=== PATIENT | male | born 1965 | race Caucasian/White ===

== ENCOUNTER → 2016-11-24 | Outpatient (CLI) | payer BC ==
--- NOTE | 2016-11-24 10:02 | Diagnostic Imaging Report ---
PROCEDURE: CT abdomen and pelvis without contrast. TECHNIQUE: Multiple contiguous axial images were obtained through the abdomen and pelvis without the use of intravenous contrast. INDICATION: Bladder pain. History of nephrolithiasis. No priors. A punctate calculus nonobstructing within a right renal upper pole calyx measures 3 mm. A calyceal stone in the mid left kidney measures 4.8 mm. A punctate stone, 1 to 2 mm, within a left lower pole calyx present. A distal third left ureteral stone is about 6.5 cm above the level of the UVJ seen best on coronal image 40 series 4 and axial image 85 series 2. This calculus measures 3.7 mm AP x 2.2 mm transverse and has Hounsfield units of roughly 270 although density measurements limited by its small size. The ureter upstream may be minimally ectatic, but there is no hydronephrosis and no perinephric or periureteric edema or fluid collection. There are no stones within the lumen of the fluid-containing nonfocal urinary bladder. The right ureter was without stone or dilatation. The lung bases clear. The liver, spleen, adrenals, pancreas negative. The gallbladder surgically absent with no pathological bile duct dilatation. The aorta is nonaneurysmal. The appendix normal. There is no diverticulitis. There is no ascites, abscess, hematoma, or fluid collection. IMPRESSION: Bilateral intrarenal stones with distal third left ureteral calculus, 3.7 x 2.2 mm, without upstream hydronephrosis. Dictated by: Dictated on workstation # [id number]
== END ==
LOC: RAD 09:08
PROVIDERS: ATTEND Urology
DX: N20.2 Calculus of kidney with calculus of ureter (principal)
CPT/HCPCS: 74176

== ENCOUNTER 2016-11-28 06:06 | Outpatient (CLI) | payer BC ==
[~2016-11-28] VITALS: Ht 193 cm; Wt 129.3 kg
[2016-11-29] MEDS ORDERED: PHEN-640 PO (10:51)
[2016-11-29] MEDS ORDERED: CIPR-225 PO (10:51)
[2016-11-29] MEDS ORDERED: TAMS0.4C98 PO (10:51)
== END 2016-11-28 13:02 ==
LOC: PREOP 06:06
PROVIDERS: ATTEND Urology
DX: Z01.818 Encounter for other preprocedural examination (principal); N20.2 Calculus of kidney with calculus of ureter

== ENCOUNTER 2019-01-23 17:34 | Emergency (ER) | payer BC ==
[~2019-01-23] VITALS: Ht 193 cm; Wt 133.9 kg
[~2019-01-23 17:34] MED LIST: CIPR-225 PO; PHEN-640 PO; TMSL.4C PO
--- NOTE | 2019-01-23 17:59 | ED Abdominal Pain ---
General Stated Complaint: LOWER ABD PAIN Source of Information: Patient Exam Limitations: No Limitations (ELI DUNN DO) History of Present Illness Date Seen by Provider: Jan 23, 2019 Time Seen by Provider: 17:56 Initial Comments Patient is here with suprapubic bladder pain and said kidney stones in the past probably 9 times all of them associated with bladder pain there uric acid stones inside gallop as a diagnosis has been on allopurinol one time not now no fever no chills is been dealing with this for several days at this time does not think he can pass on its own. Timing/Duration: 6-7 Days Severity/Quality: Moderate Location: Suprapubic Radiation: No Radiation Modifying Factors: Improves With Movement Associated Symptoms: No Fever/Chills; Nausea/Vomiting; No Weakness (KELY WELLS JR, MD) Allergies and Home Medications Allergies Coded Allergies: No Known Drug Allergies (Unverified , 11/28/16) Home Medications Ciprofloxacin HCl 500 Mg Tablet, 500 MG PO BID Prescribed by: ALF ORTIZ on 11/29/16 1051 Phenazopyridine HCl 200 Mg Tablet, 1 TAB PO TID PRN for PAIN-MILD TO MODERATE Prescribed by: ALF ORTIZ on 11/29/16 1051 Tamsulosin HCl 0.4 Mg Cap, 0.4 MG PO DAILY Prescribed by: ALF ORTIZ on 11/29/16 1051 Patient Home Medication List Home Medication List Reviewed: Yes (KELY WELLS JR, MD) Home Medication List Reviewed: Yes (ELI DUNN DO) Review of Systems Review of Systems Constitutional: No chills, No dizziness, No fever EENTM: No Nose Congestion, No Throat Pain Respiratory: Denies Cough, Denies Shortness of Air, Denies Wheezing Cardiovascular: Denies Chest Pain, Denies Palpitations Gastrointestinal: Abdominal Pain; Denies Nausea, Denies Vomiting Genitourinary: Denies Burning, Denies Frequency, Denies Pain Musculoskeletal: No joint pain, No joint swelling Skin: No lesions, No rash Psychiatric/Neurological: Denies Anxiety, Denies Headache, Denies Paresthesia (KELY WELLS JR, MD) Past Wlibzis-Lbywns-Inbetx Hx Past Med/Social Hx: Reviewed Nursing Past Med/Soc Hx (KELY WELLS JR, MD) Past Med/Social Hx: Reviewed Nursing Past Med/Soc Hx (ELI DUNN DO) Patient Social History Recent Foreign Travel: No Contact w/Someone Who Travel: No Recent Hopitalizations: No (KELY WELLS JR, MD) Immunizations Up To Date Date of Influenza Vaccine: Nov 21, 2016 (KELY WELLS JR, MD) Seasonal Allergies Seasonal Allergies: No (KELY WELLS JR, MD) Past Medical History Gallbladder Reproductive Disorders: No Sexually Transmitted Disease: No HIV/AIDS: No Kidney Stones Gastrointestinal Bleed Loss of Vision: Bilateral Hearing Impairment: Denies Adverse Reaction/Blood Tranf: No (N/A) (KELY WELLS JR, MD) Physical Exam Vital Signs Vital Signs - First Documented 01/23/19 17:45 Temp 36.0 Pulse 98 Resp 18 B/P (MAP) 183/96 (125) Pulse Ox 97 (ELI DUNN DO) Vital Signs Capillary Refill : (KELY WELLS JR, MD) Height/Weight/BMI Height: 6'4.00" Weight: 285lbs. 0.0oz. 129.311740ym; 34.7 BMI Method: General Appearance: WD/WN, mild distress HEENT: normal ENT inspection, TMs normal, pharynx normal Neck: full range of motion, supple Respiratory: chest non-tender, lungs clear, no respiratory distress Cardiovascular: regular rate, rhythm, no murmur Gastrointestinal: normal bowel sounds, no organomegaly, tenderness (suprapubic moderate) Extremities: non-tender, no pedal edema Back: no CVA tenderness Neurologic/Psychiatric: normal mood/affect, oriented x 3 Skin: normal color, warm/dry (KELY WELLS JR, MD) General Appearance: no apparent distress Respiratory: chest non-tender, lungs clear, no respiratory distress Cardiovascular: normal peripheral pulses, regular rate, rhythm (ELI DUNN DO) Progress/Results/Core Measures Results/Orders Lab Results Laboratory Tests Test 01/23/19 17:40 01/23/19 18:20 Range/Units Urine Color YELLOW Urine Clarity CLEAR Urine pH 7.0 5-9 Urine Specific [place] <1.005 1.016-1.022 Urine Protein NEGATIVE NEGATIVE Urine Glucose (UA) NEGATIVE NEGATIVE Urine Ketones NEGATIVE NEGATIVE Urine Nitrite NEGATIVE NEGATIVE Urine Bilirubin NEGATIVE NEGATIVE Urine Urobilinogen 0.2 < = 1.0 MG/DL Urine Leukocyte Esterase NEGATIVE NEGATIVE Urine RBC (Auto) 3+ H NEGATIVE Urine RBC 50-100 H /HPF Urine WBC NONE /HPF Urine Crystals NONE /LPF Urine Bacteria NONE /HPF Urine Casts NONE /LPF Urine Mucus NEGATIVE /LPF Urine Culture Indicated NO White Blood Count 6.4 4.3-11.0 10^3/uL Red Blood Count 4.99 4.35-5.85 10^6/uL Hemoglobin 14.7 13.3-17.7 G/DL Hematocrit 43 40-54 % Mean Corpuscular Volume 86 80-99 FL Mean Corpuscular Hemoglobin 29 25-34 PG Mean Corpuscular Hemoglobin Concent 34 32-36 G/DL Red Cell Distribution Width 13.9 10.0-14.5 % Platelet Count 216 130-400 10^3/uL Mean Platelet Volume 10.3 7.4-10.4 FL Neutrophils (%) (Auto) 60 42-75 % Lymphocytes (%) (Auto) 27 12-44 % Monocytes (%) (Auto) 11 0-12 % Eosinophils (%) (Auto) 2 0-10 % Basophils (%) (Auto) 1 0-10 % Neutrophils # (Auto) 3.8 1.8-7.8 X 10^3 Lymphocytes # (Auto) 1.7 1.0-4.0 X 10^3 Monocytes # (Auto) 0.7 0.0-1.0 X 10^3 Eosinophils # (Auto) 0.1 0.0-0.3 10^3/uL Basophils # (Auto) 0.0 0.0-0.1 10^3/uL Neutrophils % (Manual) 56 % Lymphocytes % (Manual) 33 % Monocytes % (Manual) 5 % Eosinophils % (Manual) 2 % Basophils % (Manual) 0 % Band Neutrophils 4 % Blood Morphology Comment NORMAL Sodium Level 139 135-145 MMOL/L Potassium Level 4.0 3.6-5.0 MMOL/L Chloride Level 103 98-107 MMOL/L Carbon Dioxide Level 24 21-32 MMOL/L Anion Gap 12 5-14 MMOL/L Blood Urea Nitrogen 16 7-18 MG/DL Creatinine 1.29 0.60-1.30 MG/DL Estimat Glomerular Filtration Rate 58 BUN/Creatinine Ratio 12 Glucose Level 93 70-105 MG/DL Calcium Level 9.4 8.5-10.1 MG/DL Corrected Calcium 9.0 8.5-10.1 MG/DL Total Bilirubin 0.6 0.1-1.0 MG/DL Aspartate Amino Transf (AST/SGOT) 22 5-34 U/L Alanine Aminotransferase (ALT/SGPT) 30 0-55 U/L Alkaline Phosphatase 77 40-136 U/L Total Protein 7.0 6.4-8.2 GM/DL Albumin 4.5 3.2-4.5 GM/DL (ELI DUNN DO) Medications Given in ED Current Medications Medications Dose Ordered Sig/Jan Route Start Time Stop Time Status Last Admin Dose Admin Ketorolac Tromethamine 30 mg ONCE ONCE IVP 01/23/19 18:00 01/23/19 18:01 DC 01/23/19 18:26 30 MG Ondansetron HCl 4 mg ONCE ONCE IVP 01/23/19 18:00 01/23/19 18:01 DC 01/23/19 18:27 4 MG (ELI DUNN DO) Vital Signs/I&O 01/23/19 17:45 Temp 36.0 Pulse 98 Resp 18 B/P (MAP) 183/96 (125) Pulse Ox 97 (ELI DUNN DO) Progress Progress Note : Time: 19:17 Progress Note Patient with a 2 mm stone at the ureterovesical junction. There is some obstruction on CT. Patient with improved symptoms. Patient will attempt to pass it himself but will call Dr. Mclean tomorrow since he has seen him in the past. Patient is stable upon discharge. (ELI DUNN DO) Departure Impression Primary Impression: Calculus of distal right ureter Disposition: HOME, SELF-CARE Condition: Stable Departure-Patient Inst. Referrals: LUMA FORTUNE MD (PCP/Family) Primary Care Physician Patient Instructions: How to Strain Your Urine Add. Discharge Instructions: Call Dr. Stahl in the morning The Emergency Department focuses on treating and ruling out life-threatening diseases. Whenever possible, a diagnosis is given. However most patient's are given an impression based on the history, physical exam, and workup during their brief time in the ER. Information about probable diagnosis and other educational material has been provided. Please take the time to read and understand this information. It is very important that he follow up with a doctor as discussed during her visit today. Failure to adhere to your follow-up instructions may result in severe disability, injury or so please make sure to keep your mariaa ointments. Please keep in mind the emergency department is not designed to be your primary care or "family doctor" and not urgent issues are best evaluated by an outpatient physician Scripts Hydrocodone/Acetaminophen (Hydrocodon-Acetaminophen 5-300) 1 Each Tablet 1 EACH PO Q8H PRN for PAIN-MODERATE for 1 Day, #8 TAB Prov: ELI DUNN DO 01/23/19 Tamsulosin HCl (Flomax) 0.4 Mg Cap 0.4 MG PO DAILY, #14 CAP Prov: ELI DUNN DO 01/23/19 KELY WELLS JR, MD Jan 23, 2019 17:59 ELI JUAREZ DO Jan 23, 2019 19:20 POS
[2019-01-23] MEDS ORDERED: KETOROLAC 30 MG/ML VIAL IVP ONE (18:00)
[2019-01-23] MEDS ORDERED: ONDANSETRON 4 MG/2 ML (SDV) Z0FRAN IVP ONE (18:00)
[2019-01-23] MEDS ORDERED: NS IV 1000 ML 1,000 ML IV SCH (18:00)
[2019-01-23 18:03] LABS: BILIRUBIN,URINE NEGATIVE (NEGATIVE); CLARITY,URINE CLEAR; COLOR,URINE YELLOW; GLUCOSE, URINE (UA) NEGATIVE (NEGATIVE); KETONES,URINE NEGATIVE (NEGATIVE); LEUKOCYTE ESTERASE ,URINE NEGATIVE (NEGATIVE); NITRITE,URINE NEGATIVE (NEGATIVE); PROTEIN,URINE NEGATIVE (NEGATIVE)
[2019-01-23 18:04] LABS: RBC,URINE 50-100 /HPF
--- NOTE | 2019-01-23 18:24 | Diagnostic Imaging Report ---
PROCEDURE: CT abdomen and pelvis without contrast. TECHNIQUE: Multiple contiguous axial images were obtained through the abdomen and pelvis without the use of intravenous contrast. Auto Exposure Controls were utilized during the CT exam to meet ALARA standards for radiation dose reduction. INDICATION: Lower abdominal pain. FINDINGS: Lung bases are clear. Liver appears normal. Gallbladder is surgically absent. Pancreas is normal. Spleen is not enlarged. Adrenals are normal. There is a 4 mm calculus in an interpolar calyx of the left kidney. There is hydronephrosis of the right kidney. There is a 2 mm calculus in the distal right ureter near the ureterovesical junction causing obstruction. Small bowel is not dilated. The appendix is normal. Colon appears normal. Prostate is not enlarged. IMPRESSION: Left nephrolithiasis. Right distal ureteral calculus causing hydronephrosis of the right kidney. Dictated by: Dictated on workstation # [id number]
[2019-01-23 18:38] LABS: HEMATOCRIT 43 % (40-54); HEMOGLOBIN 14.7 G/DL (13.3-17.7); MEAN CORPUSCULAR HEMOGLOBIN 29 PG (25-34); MEAN CORPUSCULAR HGB CONC 34 G/DL (32-36); MEAN CORPUSCULAR VOLUME 86 FL (80-99); PLATELET COUNT 216 10^3/uL (130-400); RED CELL DISTRIBUTION WIDTH 13.9 % (10.0-14.5); WHITE BLOOD COUNT 6.4 10^3/uL (4.3-11.0)
[2019-01-23 18:39] LABS: BASOPHILS % (AUTO) 1 % (0-10); EOSINOPHILS # (AUTO) 0.1 10^3/uL (0.0-0.3); EOSINOPHILS % (AUTO) 2 % (0-10); LYMPHOCYTES # (AUTO) 1.7 X 10^3 (1.0-4.0); LYMPHOCYTES % (AUTO) 27 % (12-44); MEAN PLATELET VOLUME 10.3 FL (7.4-10.4); MONOCYTES # (AUTO) 0.7 X 10^3 (0.0-1.0); MONOCYTES % (AUTO) 11 % (0-12); NEUTROPHILS # (AUTO) 3.8 X 10^3 (1.8-7.8); NEUTROPHILS % (AUTO) 60 % (42-75)
[2019-01-23 18:56] LABS: ALBUMIN 4.5 GM/DL (3.2-4.5); BAND NEUTROPHILS 4 %; BASOPHILS % (MANUAL) 0 %; BILIRUBIN,TOTAL 0.6 MG/DL (0.1-1.0); CALCIUM 9.4 MG/DL (8.5-10.1); CREATININE SERUM 1.29 MG/DL (0.60-1.30); EOSINOPHILS % (MANUAL) 2 %; LYMPHOCYTES % (MANUAL) 33 %; MONOCYTES % (MANUAL) 5 %; NEUTROPHILS % (MANUAL) 56 %; RBC MORPH NORMAL
[2019-01-23] MEDS ORDERED: TMSL.4C PO (19:20)
[2019-01-23] MEDS ORDERED: HYDR-3062 PO (19:20)
[2019-01-23 19:35] VITALS: BP 164/75
--- OUTSIDE RECORDS SUMMARY | 2019-02-18 16:15 | XMS REPORT | Continuity of Care Document ---
Author Organization Unknown Address Unknown Phone Unavailable Allergies Active Description Code Type Severity Reaction Onset Reported/Identified Relationship to Patient Clinical Status Yes No Known Medication Allergies Drug N/A N/A Yes No Known Drug Allergies [id number] Drug Allergy Unknown N/A 11/28/2016 Medications There is no data. Problems Date Dx Coded Attending Type Code Diagnosis Diagnosed By 11/28/2016 NOE MONTERO MD, Ot N20.2 CALCULUS OF KIDNEY WITH CALCULUS OF URET 11/28/2016 NOE MONTERO MD, Ot Z01.8 18 ENCOUNTER FOR OTHER PREPROCEDURAL EXAMIN 11/29/2016 NOE MONTERO MD, Ot N20.2 CALCULUS OF KIDNEY WITH CALCULUS OF URET 11/29/2016 NOE MONTERO MD, Ot Z01.8 18 ENCOUNTER FOR OTHER PREPROCEDURAL EXAMIN 11/29/2016 NOE MONTERO MD Ot E66.9 OBESITY, UNSPECIFIED 11/29/2016 NOE MONTERO MD Ot G47.3 3 OBSTRUCTIVE SLEEP APNEA (ADULT) (PEDIATR 11/29/2016 NOE MONTERO MD, Ot K21.9 GASTRO-ESOPHAGEAL REFLUX DISEASE WITHOUT 11/29/2016 NOE MONTERO MD, Ot N20.1 CALCULUS OF URETER 11/29/2016 NOE MONTERO MD, Ot Z11.2 ENCOUNTER FOR SCREENING FOR OTHER BACTER 11/29/2016 NOE MONTERO MD, Ot Z68.3 4 BODY MASS INDEX (BMI) 34.0-34.9, ADULT 12/06/2016 NOE MONTERO MD, Ot E66.9 OBESITY, UNSPECIFIED 12/06/2016 NOE MONTERO MD, Ot G47.3 3 OBSTRUCTIVE SLEEP APNEA (ADULT) (PEDIATR 12/06/2016 NOE MONTERO MD Ot K21.9 GASTRO-ESOPHAGEAL REFLUX DISEASE WITHOUT 12/06/2016 NOE MONTERO MD Ot N20.1 CALCULUS OF URETER 12/06/2016 NOE MONTERO MD, Ot Z11.2 ENCOUNTER FOR SCREENING FOR OTHER BACTER 12/06/2016 NOE MONTERO MD, Ot Z68.3 4 BODY MASS INDEX (BMI) 34.0-34.9, ADULT 12/15/2016 NOE MONTERO MD, Ot N20.2 CALCULUS OF KIDNEY WITH CALCULUS OF URET 01/23/2019 NOE MONTERO MD Ot N20.2 CALCULUS OF KIDNEY WITH CALCULUS OF URET 01/23/2019 NOE MONTERO MD Ot N20.2 CALCULUS OF KIDNEY WITH CALCULUS OF URET 01/23/2019 NOE MONTERO MD, Ot N20.2 CALCULUS OF KIDNEY WITH CALCULUS OF URET 01/28/2019 N20.1 URET ERAL CALCULUS Procedures There is no data. Results Test Result Range Methicillin resistant Staphylococcus aur eus (MRSA) screening culture - 11/29/16 07:50 Methicillin resistant Staphylococcus aureus (MRSA) scr eening culture NEG NRG Complete urinalysis with reflex to cultu re - 01/23/19 17:40 Urine color determination YELLOW NRG Urine clarity determination CLEAR NR G Urine pH measurement by test strip 7.0 5-9 Specific gravity of urine by test strip < 1.016-1.022 Urine protein assay by test strip, semi-quantitative NEGATIVE NEGATIVE Urine glucose detection by automated test strip NE GATIVE NEGATIVE Erythrocytes detection in urine sediment by light micr oscopy 3+ NEGATIVE Urine ketones detection by automated test strip NE GATIVE NEGATIVE Urine nitrite detection by test strip NEGATIVE NEGATIVE Urine total bilirubin detection by test strip NEGA TIVE NEGATIVE Urine urobilinogen measurement by automated test strip (mass/volume) 0.2 mg/dL < = 1.0 Urine leukocyte esterase detection by dipstick NEG ATIVE NEGATIVE Automated urine sediment erythrocyte cou nt by microscopy (number/high power field) [HPF] NRG Automated urine sediment leukocyte count by microscopy (number/high power field) NONE NRG Bacteria detection in urine sediment by light microsco py NONE NRG Crystals detection in urine sediment by light microsco py NONE NRG Casts detection in urine sediment by light microscopy NONE NRG Mucus detection in urine sediment by light microscopy NEGATIVE NRG Complete urinalysis with reflex to culture NO NRG Blood CBC with ordered manual differenti al panel - 01/23/19 18:20 Blood leukocytes automated count (number/volume) 6.4 10*3/uL 4.3-11.0 Blood erythrocytes automated count (number/volume) 4.99 10*6/uL 4.35-5.85 Venous blood hemoglobin measurement (mass/volume) 14.7 g/dL 13.3-17.7 Blood hematocrit (volume fraction) 43 % 40-54 Automated erythrocyte mean corpuscular volume 86 [ foz_us] 80-99 Automated erythrocyte mean corpuscular h emoglobin (mass per erythrocyte) 29 pg 25-34 Automated erythrocyte mean corpuscular h emoglobin concentration measurement (mass/volume) 34 g/dL 32-36 Automated erythrocyte distribution width ratio 13. 9 % 10.0- 14.5 Automated blood platelet count (count/volume) 216 10*3/uL 130-400 Automated blood platelet mean volume measurement 10.3 [foz_us] 7.4-10.4 Automated blood neutrophils/100 leukocytes 60 % 42-75 Automated blood lymphocytes/100 leukocytes 27 % 12-44 Blood monocytes/100 leukocytes 5 % NRG Automated blood eosinophils/100 leukocytes 2 % 0-10 Automated blood basophils/100 leukocytes 1 % 0-10 Blood neutrophils automated count (number/volume) 3.8 10*3 1.8-7.8 Blood lymphocytes automated count (number/volume) 1.7 10*3 1.0-4.0 Blood monocytes automated count (number/volume) 0. 7 10*3 0.0-1.0 Automated eosinophil count 0.1 10*3/uL 0 .0-0.3 Automated blood basophil count (count/volume) 0.0 10*3/uL 0.0-0.1 Manual blood segmented neutrophils/100 leukocytes 56 % NRG Blood band neutrophils/100 leukocytes 4 % NRG Manual blood lymphocytes/100 leukocytes 33 % NRG Manual eosinophils/100 leukocytes in nose 2 % NRG Manual blood basophils/100 leukocytes 0 % NRG Blood erythrocyte morphology finding identification NORMAL [facility] Comprehensive metabolic panel - 01/23/19 18:20 Serum or plasma sodium measurement (moles/volume) 139 mmol/L 135-145 Serum or plasma potassium measurement (moles/volume) 4.0 mmol/L 3.6-5.0 Serum or plasma chloride measurement (moles/volume) 103 mmol/L 98-107 Carbon dioxide 24 mmol/L 21-32 Serum or plasma anion gap determination (moles/volume) 12 mmol/L 5-14 Serum or plasma urea nitrogen measurement (mass/volume ) 16 mg/dL 7-18 Serum or plasma creatinine measurement (mass/volume) 1.29 mg/dL 0.60-1.30 Serum or plasma urea nitrogen/creatinine mass ratio 12 NRG Serum or plasma creatinine measurement w ith calculation of estimated glomerular filtration rate 58 NRG Serum or plasma glucose measurement (mass/volume) 93 mg/dL 70-105 Serum or plasma calcium measurement (mass/volume) 9.4 mg/dL 8.5-10.1 Serum or plasma total bilirubin measurement (mass/volu me) 0.6 mg/dL 0.1-1.0 Serum or plasma alkaline phosphatase jessa surement (enzymatic activity/volume) 77 U/L 40-136 Serum or plasma aspartate aminotransfera se measurement (enzymatic activity/volume) 22 U/L 5-34 Serum or plasma alanine aminotransferase measurement (enzymatic activity/volume) 30 U/L 0-55 Serum or plasma protein measurement (mass/volume) 7.0 g/dL 6.4-8.2 Serum or plasma albumin measurement (mass/volume) 4.5 g/dL 3.2-4.5 CALCIUM CORRECTED 9.0 mg/dL 8.5-10.1 Encounters ACCT No. Visit Date/Time Discharge Status Pt. Type Provider Facility Loc./Unit Complaint [id number] 02/01/2019 08:44:00 ACT Unknown [id number] 01/23/2019 17:36:00 019 19:35:00 DIS Emergency DUNN DO, ELI L [facility] ER FS LOWER ABD PAIN [id number] 11/29/2016 07:32:00 017 12:00:00 DIS Outpatient NOE MONTERO MD [facility] SDC LEFT URETERAL STONE, BI L. RENAL STONES [id number] 11/28/2016 06:06:00 017 13:02:00 DIS Outpatient NOE MONTERO MD [facility] PREOP LEFT URETERAL STONE, BI L. RENAL STONE [id number] 11/24/2016 09:08:00 017 23:59:59 CLS Outpatient WINSTON MORTENSEN, NOE [facility] RAD PELVIC PAIN, H/X OF STO LIZY [id number] 01/31/2019 13:31:30 9 18:02:00 DIS Outpatient LYDIA STAUFFER [facility] [place] Surgery ops
--- OUTSIDE RECORDS SUMMARY | 2019-02-18 16:15 | XMS REPORT | Clinical Summary ---
Author Author Giorgi Brewer Organization [employer] Address Unknown Phone Unavailable Allergies, Adverse Reactions, Alerts Allergy Name Reaction Description Start Date Severity Status Pr ovider Allergies Unknown Conditions or Problems Problem Name Problem Code Onset Date Status Entry Date Provider Comment Standard Description Annotate URETERAL CALCULUS 592.1 Active Cristopher Montes MD Calculus of ureter Medication List Medication Instructions Start Date Stop Date Generic Name NDC Status Provider Patient Instruction HYDROCODONE-ACETAMINOPHEN 5-325 MG ORAL TABLET 1-2 tablets a s needed for pain HYDROCODONE-ACETAMINOPHEN 92137785514 Active Cristopher leija MD Active TRAMADOL HCL 50 MG ORAL TABLET 1 tablet as needed for pain TRAMADOL HCL 10849563007 Active Cristopher Montes MD Active FLOMAX 0.4 MG ORAL CAPSULE once daily TAMSULOSIN HCL 23786636681 Active Cristopher Montes MD Active Advance Directives Directive Description Start Date PERMISSION TO SHARE Vital Signs Date Name Value Unit Range Description blood pressure, diastolic, repeated by physician 90 BP felix blood pressure, diastolic 90 mm[Hg] BP felix blood pressure, systolic, repeated by physician 140 BP sys blood pressure, systolic 140 mm[Hg] BP sys height E&M 76 [in_us] Bdy height pulse rate E&M 78 /min Heart rate temperature E&M 98.2 [degF] Body temp erature weight E&M 295.50 [lb_av] Weight Measure d Encounters Code Encounter Date Provider Facility CPT-89739 Level 4 New Patient 19:33:40 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
--- OUTSIDE RECORDS SUMMARY | 2019-02-18 16:15 | XMS REPORT | Clinical Summary ---
Author Author Admin, Giorgi Rivera Organization [facility] Address Unknown Phone Unavailable Allergies, Adverse Reactions, Alerts Allergy Name Reaction Description Start Date Severity Status Pr ovider Allergies Unknown Conditions or Problems Problem Name Problem Code Onset Date Status Entry Date Provider Comment Standard Description Annotate Problems Unknown Active Medication List Medication Instructions Start Date Stop Date Generic Name NDC Status Provider Patient Instruction Drug Treatment Unknown - unknown Procedures Code Procedure Name Date Entry Date Standard Desc ription CPT-79617 Abdomen, 1 view 13:21:14 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
--- OUTSIDE RECORDS SUMMARY | 2019-02-18 16:15 | XMS REPORT | Clinical Summary ---
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
--- OUTSIDE RECORDS SUMMARY | 2019-02-18 16:15 | XMS REPORT | Clinical Summary ---
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
--- OUTSIDE RECORDS SUMMARY | 2019-02-18 16:15 | XMS REPORT | Clinical Summary ---
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
--- OUTSIDE RECORDS SUMMARY | 2019-02-18 16:15 | XMS REPORT | Clinical Summary ---
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
--- OUTSIDE RECORDS SUMMARY | 2019-02-18 16:15 | XMS REPORT | Clinical Summary ---
Author Author Daniella, Giorgi Rivera Organization [employer] [facility] Address Unknown Phone Unavailable Allergies, Adverse Reactions, [...] tablets a s needed for pain HYDROCODONE-ACETAMINOPHEN 36851685378 Active Cristopher leija MD Active TRAMADOL HCL 50 MG ORAL TABLET 1 tablet as needed for pain TRAMADOL HCL 55565073954 Active Cristopher Montes MD Active FLOMAX 0.4 MG ORAL CAPSULE once daily TAMSULOSIN HCL 35653259618 Active Cristopher Montes MD Active Vital Signs Date Name Value Unit Range [...] d Encounters Code Encounter Date Provider Facility [id number] Level 4 New Patient 19:33:40 [facility] Cristopher sanabria MD [facility] Procedures Code Procedure Name Date Entry Date Standard Desc ription [id number] Abdomen, 1 view 13:21:14 [facility]
== END 2019-01-23 19:35 | disposition home or self-care (01) ==
LOC: EDUNIT# 17:34 → ER FS 17:36
DX: N13.2 Hydronephrosis with renal and ureteral calculous obstruction (principal); Z87.19 Personal history of other diseases of the digestive system
CPT/HCPCS: 36415; 74176; 80053; 81000; 85007; 85027; 96361; 96374; 96375